=== PATIENT | female | born 1970 | race Native Hawaiian/Other Pacific Islander ===

== ENCOUNTER 2017-11-17 09:30 | Outpatient (CLI) | payer OTHER | END 2017-11-17 21:05 | disposition home or self-care (01) | LOC: US 09:30 | DX: R10.2 Pelvic and perineal pain (principal) ==

== ENCOUNTER 2019-10-17 15:24 | Outpatient (CLI) | payer OTHER | END 2019-10-17 22:31 | disposition home or self-care (01) | LOC: CT 15:24 | DX: J01.01 Acute recurrent maxillary sinusitis (principal) ==

== ENCOUNTER 2019-11-19 13:55 | Emergency (ER) | payer OTHER ==
[~2019-11-19] VITALS: Ht 170.2 cm; Wt 81.6 kg
[2019-11-19 14:47] LABS: PLATELET COUNT 216 K/uL (152-353)
[2019-11-19 14:49] LABS: POTASSIUM 3.7 mmol/L (3.6-5.2); SODIUM 139 mmol/L (136-145)
[2019-11-19 15:09] LABS: PARTIAL THROMBOPLASTIN TIME 26.5 SECONDS (24.5-33.6)
[2019-11-19 16:30] VITALS: BP 133/79; TEMP 98
== END 2019-11-19 16:30 | disposition home or self-care (01) ==
LOC: ED 13:55
PROVIDERS: Family Medicine
DX: R07.89 Other chest pain (principal); M94.0 Chondrocostal junction syndrome [Tietze]
CPT/HCPCS: 36415; 80053; 81000; 82550; 84484; 85027; 85379; 85610; 85730; 93005; 99284

== ENCOUNTER 2021-09-17 10:43 | Outpatient (CLI) | payer BC | END 2021-09-17 18:59 | disposition home or self-care (01) | LOC: US 10:43 | PROVIDERS: ATTEND Internal Medicine | DX: M79.604 Pain in right leg (principal) ==

== ENCOUNTER 2022-11-15 08:51 | Outpatient (CLI) | payer OTHER | END 2022-11-15 23:07 | disposition home or self-care (01) | LOC: RESP 08:51 | PROVIDERS: ATTEND Internal Medicine Endocrinology, Diabetes & Metabolism | DX: E66.9 Obesity, unspecified (principal); R06.02 Shortness of breath ==